=== PATIENT | female | born 1990 | race Caucasian/White ===

== ENCOUNTER 2018-06-15 13:33 | Outpatient (CLI) | payer MEDICAID ==
[2018-06-15 15:16] LABS: APPEARANCE,URINE SLIGHTLY-CLOUDY; BILIRUBIN,URINE NEGATIVE (NEGATIVE); COLOR,URINE YELLOW; GLUCOSE, URINE NEGATIVE (NEGATIVE); KETONES,URINE TRACE mg/dL (NEGATIVE); LEUKOCYTE ESTERASE,URINE NEGATIVE (NEGATIVE); NITRITE,URINE NEGATIVE (NEGATIVE); PROTEIN,URINE NEGATIVE (NEGATIVE); URINE SPECIFIC GRAVITY 1.021; UROBILINOGEN,URINE NEGATIVE mg/dL (<2.0)
[2018-06-15 15:43] LABS: URINE AMPHETAMINES SCREEN NEGATIVE; URINE BARBITURATES SCREEN NEGATIVE; URINE BENZODIAZEPINES SCREEN NEGATIVE; URINE COCAINE SCREEN NEGATIVE; URINE METHADONE SCREEN NEGATIVE; URINE PHENCYCLIDINE SCREEN NEGATIVE
[2018-06-15 15:49] LABS: URINE MARIJUANA (THC) SCREEN UNCONFIRMED POSITIVE
--- NOTE | 2018-06-15 15:58 | Non Stress Test Report ---
Non Stress Test Datetime Report Generated by CPN: 06/15/2018 15:58 DEMOGRAPHIC EGA NST: 36.3 INDICATION Indication for Study: Other Indication for Study (NST) Other: labor check VITAL SIGNS Temperature - NST: 96.9 Pulse - NST: 93 RESP - NST: 17 NBPSYS NST: 116 NBPDIA NST: 58 MONITORING Monitor Explained: Monitor Explained; Test Explained; Patient Verbalized Understanding Time on Monitor: 06/15/2018 15:15 Time off Monitor: 06/15/2018 15:35 NST Duration: 20 NST INTERVENTIONS NST Interventions: PO Hydration Physician Notified NST: Dr. Isaac BABY A: [id number] BABY A Movement : Present Contraction Frequency : 0 FHR Baseline : 120 Accelerations : 15X15 Decelerations : None Variability : Moderate 6-25bpm NST Review: Meets Criteria for Reactive NST NST Review and Verified By : Joann Porras RN NST Results: Reactive NST REPORT Report Trigger: Send Report
== END 2018-06-15 16:02 | disposition home or self-care (01) ==
LOC: LC 13:33
PROVIDERS: ATTEND Obstetrics & Gynecology
PROC: 4A1HXCZ Monitoring of Products of Conception, Cardiac Rate, External Approach (ICD-10-PCS; principal; 2018-06-15)
DX: O26.893 Other specified pregnancy related conditions, third trimester (principal); Z3A.36 36 weeks gestation of pregnancy; E86.0 Dehydration
CPT/HCPCS: 59025; 80307; 81005

== ENCOUNTER 2018-07-04 06:12 | Inpatient (IN) | payer MEDICAID ==
[2018-06-28 10:42] LABS: ABSOLUTE MONOCYTES (AUTO) 0.6 10^3/uL (0.1-1.4); ABSOLUTE NEUT (AUTO) 5.5 10^3/uL (1.7-8.2); BASOPHILS % (AUTO) 0.2 % (0-2); EOSINOPHILS % (AUTO) 0.3 % (0-6); HEMATOCRIT 37.4 % (36.0-47.0); LYMPHOCYTES % (AUTO) 24.7 % (13-45); MEAN CORPUSCULAR HEMOGLOBIN 29.1 pg (27.0-33.4); MEAN CORPUSCULAR HGB CONC 34.6 g/dL (32.0-36.0); MEAN CORPUSCULAR VOLUME 84 fl (80-97); MONOCYTES % (AUTO) 7.3 % (3-13); PLATELET COUNT 275 10^3/uL (150-450); RED BLOOD COUNT 4.46 10^6/uL (3.72-5.28); RED CELL DISTRIBUTION WIDTH 13.3 % (11.5-14.0); SEGMENTED NEUTROPHILS % (AUTO) 67.5 % (42-78); TOTAL CELLS COUNTED % (AUTO) 100 %; WHITE BLOOD COUNT 8.2 10^3/uL (4.0-10.5)
[2018-06-28 10:46] LABS: APPEARANCE,URINE SLIGHTLY-CLOUDY; BILIRUBIN,URINE NEGATIVE (NEGATIVE); COLOR,URINE YELLOW; GLUCOSE, URINE NEGATIVE (NEGATIVE); KETONES,URINE TRACE mg/dL (NEGATIVE); LEUKOCYTE ESTERASE,URINE NEGATIVE (NEGATIVE); NITRITE,URINE NEGATIVE (NEGATIVE); PROTEIN,URINE NEGATIVE (NEGATIVE); URINE SPECIFIC GRAVITY 1.024; UROBILINOGEN,URINE NEGATIVE mg/dL (<2.0)
[2018-06-28 11:00] LABS: URINE AMPHETAMINES SCREEN NEGATIVE; URINE BARBITURATES SCREEN NEGATIVE; URINE BENZODIAZEPINES SCREEN NEGATIVE; URINE COCAINE SCREEN NEGATIVE; URINE MARIJUANA (THC) SCREEN NEGATIVE; URINE METHADONE SCREEN NEGATIVE; URINE PHENCYCLIDINE SCREEN NEGATIVE
[2018-07-04] MEDS ORDERED: CEFAZOLIN 1 GM/D5W RTU 1 GM/50 ML RTUPB IV PRN (06:50)
[2018-07-04] MEDS ORDERED: RINGERS SOLUTION,LACTATED 1,000 ML IV PRN (06:53)
[2018-07-04] MEDS ORDERED: LIDOCAINE 0.5% INJ-PF (5 MG/ML) 50 ML SDV INJ PRN (06:56)
[2018-07-04] MEDS ORDERED: RINGERS SOLUTION,LACTATED 1,000 ML IV ONE (07:00)
[2018-07-04] MEDS ORDERED: BUPIVACAINE HCL/DEX-WATER/PF 15 MG/2 ML AMPULE ONE (07:15)
[2018-07-04] MEDS ORDERED: ACETAMINOPHEN 1,000 MG/100 ML RTUPB IV ONE (07:15)
[2018-07-04] MEDS ORDERED: OXYTOCIN 10 UNIT/ML VIAL ONE (07:17)
[2018-07-04] MEDS ORDERED: FENTANYL CITRATE INJ/PF 100 MCG/2 ML AMPUL ONE (07:17)
[2018-07-04] MEDS ORDERED: OXYTOCIN/NORMAL SALINE 20 UNIT/1,000 ML RTUINJ ONE (07:17)
[2018-07-04] MEDS ORDERED: ONDANSETRON HCL INJ/PF 4 MG/2 ML SDV ONE (07:17)
[2018-07-04] MEDS ORDERED: FAMOTIDINE INJ/PF 20 MG/2 ML SDV IV ONE (09:25)
[2018-07-04] MEDS ORDERED: MEPERIDINE HCL/PF INJ 25 MG/1 ML DISP.SYRIN IV PRN (09:33)
[2018-07-04] MEDS ORDERED: PROMETHAZINE HCL INJ 25 MG/1 ML VIAL IV PRN ×3 (09:33→10:56)
[2018-07-04] MEDS ORDERED: FENTANYL CITRATE INJ/PF 100 MCG/2 ML AMPUL IV PRN ×3 (09:33)
[2018-07-04] MEDS ORDERED: DIPHENHYDRAMINE HCL 50 MG/ML VIAL IV PRN (09:33)
[2018-07-04] MEDS ORDERED: MORPHINE SULFATE 10 MG/ML INJ IV PRN (09:33)
[2018-07-04] MEDS ORDERED: CEFAZOLIN INJ 1 GM VIAL ONE (09:57)
[2018-07-04] MEDS ORDERED: DIPH/PERTUSS(ACELL)/TETANUS VAC/PF 0.5 ML SYR (>=10YO) IM PRN (10:56)
[2018-07-04] MEDS ORDERED: OXYTOCIN/NORMAL SALINE 20 UNIT/1,000 ML RTUINJ IV PRN (10:56)
[2018-07-04] MEDS ORDERED: ACETAMINOPHEN 325 MG TABLET PO PRN (10:56)
[2018-07-04] MEDS ORDERED: OXYCODONE-ACETAMINOPHEN 5-325 MG TABLET PO PRN (10:56)
[2018-07-04] MEDS ORDERED: HYDROMORPHONE HCL INJ/PF 2 MG/ML AMPULE IV PRN (10:56)
[2018-07-04] MEDS ORDERED: MEASLES,MUMPS&RUBELLA VACC/PF 0.5 ML VIAL SUBCUT PRN (10:56)
--- NOTE | 2018-07-04 11:01 | Brief Operative Note ---
BRIEF OPERATIVE REPORT DATE OF SURGERY: 07/04/18 TIME OF SURGERY: 09:30 PREOPERATIVE DIAGNOSIS: 1. IUP at 39 weeks. 2. h/o stretched urethra during delivery. 3. GBS Positive. 4. Maternal Obesity POSTOPERATIVE DIAGNOSIS: same SURGEON: GERARD CHRISTOPHER FINDINGS: male fetus in a cephalic position COMPLICATIONS: none ESTIMATED BLOOD LOSS: 600 ml TISSUE REMOVED OR ALTERED: placenta TECHNICAL PROCEDURE: Primary section with bilateral tubal ligation
[2018-07-04] MEDS ORDERED: HYDROMORPHONE HCL INJ/PF 2 MG/ML AMPULE ONE (11:32)
[2018-07-04] MEDS ORDERED: KETOROLAC TROMETHAMINE 60 MG/2 ML SDV ONE (11:35)
[2018-07-04] MEDS: OXYCODONE-ACETAMINOPHEN 5-325 MG TABLET PO PRN ×2 (13:16→19:29)
--- NOTE | 2018-07-04 13:23 | Operative Report ---
Operative Report DATE OF SURGERY: 07/04/18 PREOPERATIVE DIAGNOSIS: 1. IUP at 39 weeks. 2. h/o stretched urethra during de livery. 3. GBS Positive. 4. Maternal Obesity POSTOPERATIVE DIAGNOSIS: same OPERATION: Primary section with bilateral tubal ligation SURGEON: GERARD CHRISTOPHER ANESTHESIA: Spinal TISSUE REMOVED OR ALTERED: placenta ESTIMATED BLOOD LOSS: 600 ml INTRAOPERATIVE FINDINGS: male fetus in a cephalic position; normal appearing uterus, bilateral tbes and ovaries PROCEDURE: The patient was taken to the operating room where spinal anesthesia was obtained and found to be adequate. She was then prepped and draped in the normal sterile fashion and placed in the dorsal supine position with a leftward tilt. A Pfannenstiel skin incision was then made and carried through to the underlying layers of the fascia with the scalpel. The fascia was incised in the midline and the incision extended laterally with the Austin scissors. The superior aspect of the fascial incision was then grasped with Yas clamps elevated and the underlying rectus muscles dissected off both bluntly and sharply. Attention was then turned to the inferior aspect of the fascial incision which in a similar fashion was grasped, tented up with Yas clamps, and the rectus muscles dissected off both bluntly and sharply. The rectus muscles were then in the midline and the peritoneum at the amount identified and entered [bluntly]. The peritoneal incision was then extended superiorly and inferiorly with good visualization of the bladder. The bladder blade was inserted and the vesicouterine peritoneum identified grasped with [place] pickups and entered sharply with the Metzenbaum scissors. This incision was then extended laterally with the Metzenbaum scissors and a bladder flap created digitally. The bladder blade was then reinserted and the lower uterine segment incised in a transverse fashion with the scalpel. The uterine incision was then extended bluntly and with th bandage scissors. The bladder blade was removed and the 's head was delivered from cephalic presentation atraumatically. The nose and mouth were suctioned and the cord doubly clamped and cut. The infant was handed off to waiting pediatricians. The placenta was then delivered manually and the uterus exteriorized and cleared of all clots and debris. The uterine incision was then repaired with 0 Vicryl in a running locked fashion. 0-Chromic was used to obtain hemostasis via imbrication of the initial layer. The bladder flap was then repaired with 3-0 Vicryl in a running fashion. Attention was then turned to the patient's permanent sterilization. The right fallopian tube was grasped with a [place] and followed through to the fimbriated end. A Filshie clip was then placed mid-tubal and hemostasis was noted. The same procedure was performed on the left fallopian tube and hemostasis was also noted. The uterus was returned to the patient's abdomen and Interceed was placed overlying the uterine incision, as well as a piece placed vertically on the anterior surface of the uterus, to prevent adhesions. The gutters were cleared of all clots and debris. All operative sites were noted to be hemostatic. The fascia was reapproximated with 0 Vicryl in a running fashion from each lateral edge to the midline. The subcutaneous fat layer was then closed in an interrupted fashion with 3-0 vicryl. The skin was closed with 4-0 Monocryl in a running, subcuticular fashion. The patient tolerated the procedure well. Sponge, lap, needle and instrument counts are correct x 2. 2 g of Ancef were given prior to skin incision. The patient was taken to the recovery area awake and in stable condition.
[2018-07-04] MEDS ORDERED: KETOROLAC TROMETHAMINE INJ/PF 30 MG/1 ML SDV IV SCH (14:00)
[2018-07-04] MEDS: KETOROLAC TROMETHAMINE INJ/PF 30 MG/1 ML SDV IV SCH (17:22)
[2018-07-04] MEDS: DOCUSATE SODIUM 100 MG CAPSULE PO SCH (17:23)
[2018-07-05] MEDS: OXYCODONE-ACETAMINOPHEN 5-325 MG TABLET PO PRN ×4 (00:14→23:34)
[2018-07-05] MEDS: KETOROLAC TROMETHAMINE INJ/PF 30 MG/1 ML SDV IV SCH (02:18)
[2018-07-05] MEDS: IBUPROFEN 800 MG TABLET PO SCH ×4 (03:00→21:35)
[2018-07-05] MEDS: SIMETHICONE 80 MG TAB.CHEW PO PRN ×2 (06:51→15:58)
[2018-07-05 06:53] LABS: HEMATOCRIT 32.4 % (36.0-47.0); HEMOGLOBIN 11.2 g/dL (12.0-15.5); MEAN CORPUSCULAR HEMOGLOBIN 29.1 pg (27.0-33.4); MEAN CORPUSCULAR HGB CONC 34.5 g/dL (32.0-36.0); MEAN CORPUSCULAR VOLUME 85 fl (80-97); PLATELET COUNT 244 10^3/uL (150-450); RED BLOOD COUNT 3.83 10^6/uL (3.72-5.28); RED CELL DISTRIBUTION WIDTH 13.8 % (11.5-14.0); WHITE BLOOD COUNT 8.1 10^3/uL (4.0-10.5)
[2018-07-05] MEDS: DOCUSATE SODIUM 100 MG CAPSULE PO SCH ×2 (09:40→18:38)
[2018-07-05] MEDS: PRENATAL VITAMIN W DHA CAPSULE PO SCH (09:40)
[2018-07-05] MEDS ORDERED: IBUPROFEN 800 MG TABLET PO SCH (12:00)
[2018-07-06] MEDS: IBUPROFEN 800 MG TABLET PO SCH ×3 (03:05→14:58)
--- NOTE | 2018-07-06 08:56 | PDOC DISCHARGE SUMMARY ---
Final Diagnosis Discharge Date: 07/06/18 - Final Diagnosis (1) Status post primary low transverse section Is this a current diagnosis for this admission?: Yes Discharge Data - Discharge Medication Prescriptions: Oxycodone HCl/Acetaminophen [Percocet 5-325 mg Tablet] 1 tab PO Q4HP PRN #30 tablet PRN Reason: Ibuprofen [Motrin 800 mg Tablet] 800 mg PO Q8HP PRN #60 tablet PRN Reason: Home Medications: Vit,Calc76/Iron/Folic [Prenatabs Rx Tablet] 1 each PO DAILY 06/15/18 Ibuprofen [Motrin 800 mg Tablet] 800 mg PO Q8HP PRN #60 tablet 07/05/18 Oxycodone HCl/Acetaminophen [Percocet 5-325 mg Tablet] 1 tab PO Q4HP PRN #30 tablet 07/05/18 Reason(s) for Admission: Ceasarean Section-Primary Procedures: None Intrapartum Procedure(s): : Low Cervical, Transverse - Diagnosis Test Laboratory: Temp Pulse Resp BP Pulse Ox 98 F 76 16 141/82 H 98 07/05/18 09:05 07/05/18 09:05 07/05/18 09:05 07/05/18 09:05 07/05/18 09:05 06/28/18 06/28/18 07/05/18 09:17 09:23 06:31 RBC 4.46 3.83 Hgb 13.0 11.2 L Hct 37.4 32.4 L Urine Opiates Screen NEGATIVE - Discharge information/Instructions Discharge Activity: Balance Activity w/Rest, No Lifting Over 10 Pounds, No Lifting/Push/Pulling, Pelvic Rest, No tub bath Discharge Diet: Regular Disposition: HOME, SELF-CARE Follow [facility] with: [facility]: 5, Days
[2018-07-06] MEDS: PRENATAL VITAMIN W DHA CAPSULE PO SCH (09:28)
[2018-07-06] MEDS: DOCUSATE SODIUM 100 MG CAPSULE PO SCH (09:28)
[2018-07-06 11:57] VITALS: BP 133/68
== END 2018-07-06 15:16 | disposition home or self-care (01) | DRG 785 ==
LOC: 2S 06:12
PROVIDERS: ADMIT Obstetrics & Gynecology; ATTEND Obstetrics & Gynecology
PROC: 0UL70CZ Occlusion of Bilateral Fallopian Tubes with Extraluminal Device, Open Approach (ICD-10-PCS; 2018-07-04)
PROC: 10D00Z1 Extraction of Products of Conception, Low, Open Approach (ICD-10-PCS; principal; 2018-07-04 09:15)
DX: O82 Encounter for cesarean delivery without indication (principal); O99.824 Streptococcus B carrier state complicating childbirth; O99.344 Other mental disorders complicating childbirth; O99.284 Endocrine, nutritional and metabolic diseases complicating childbirth; E28.2 Polycystic ovarian syndrome; F41.1 Generalized anxiety disorder; O99.214 Obesity complicating childbirth; O75.89 Other specified complications of labor and delivery; E66.9 Obesity, unspecified; Z3A.39 39 weeks gestation of pregnancy; Z37.0 Single live birth; Z30.2 Encounter for sterilization
CPT/HCPCS: 1961; 36415; 80307; 81001; 85025; 85027; 86850; 86900; 86901; 94799; C1765; J0131; J0690; J1170; J1885; J2405; J2590; J3010; J3490; S0028